=== PATIENT | male | born 1960 | race American Indian/Alaskan Native ===

== ENCOUNTER 2017-08-25 09:29 | Emergency (ER) | payer MEDICAID ==
--- NOTE | 2017-08-25 10:58 | Cat Scan Report ---
CT scan of head without IV contrast: History: NEURODEFICIT Findings: Ventricles are midline in location. Ill-defined area of low attenuation left basal ganglia with dilatation of the adjacent lateral ventricle suggestive of chronic ischemia. Multiple focal areas of low attenuation right basal ganglia suggestive with chronic lacunar infarct. No evidence of acute ischemia or hemorrhage. No extra-axial fluid collection. Normal brainstem and cerebellum. Normal sinuses and mastoid air cells. Impression: Chronic ischemic changes as detailed above. No definite evidence of acute ischemia.
[2017-08-25 11:30] LABS: Basophils % (Auto) 1.1 % (0.0-1.8); Eosinophils % (Auto) 2.3 % (0.0-4.3); Hematocrit 41.6 % (35.5-45.6); Mean Corpuscular HGB Conc 34 % (32-34); Mean Corpuscular Hemoglobin 27 pg (28-32); Mean Corpuscular Volume 81 fl (84-94); Platelet Count 214 K/mm3 (140-440); Red Blood Count 5.13 M/mm3 (3.65-5.03); Red Cell Distribution Width 15.8 % (13.2-15.2); White Blood Count 8.8 K/mm3 (4.5-11.0)
[2017-08-25] MEDS ORDERED: NACL 0.9% 1000 ML 1,000 ML IV ONE (11:47)
--- NOTE | 2017-08-25 12:07 | Emergency Department Report ---
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 Patient states the right side of his face feels tight. He denies involuntary twitching/ spasms. He denies any new neurologic deficits. He denies any symptoms to his right upper or lower extremity. No pain reported. Patient also complaint of felt lightheaded while ambulating today. Patient ambulates with a walker at baseline. No complaints of fever, dysuria, melena, hematochezia, nausea, vomiting, or diarrhea. By mouth intake reported. - Related Data Allergies/Adverse Reactions: Allergies Allergy/AdvReac Type Severity Reaction Status Date / Time No Known Allergies Allergy Unverified 08/25/17 10:15 ED Review of Systems ROS: Stated complaint: STROKE LIKE SYMPTOMS Other details as noted in HPI Comment: All other systems reviewed and negative Other: Constitutional: No fevers chills Eyes: No eye pain visual changes ENT: No ear pain or throat pain Neck: Denies pain Respiratory: Denies cough wheezing shortness of breath Cardiovascular: Denies chest pain, palpitations, syncope GI: Denies abdominal pain, nausea, vomiting, diarrhea : Denies dysuria Musculoskeletal: Denies back pain, joint swelling Skin: Denies rash, lesions, erythema Neurologic: Denies headache, numbness, weakness Psychiatric: Denies suicidal ideation, hallucinations ED Past Medical Hx - Past Medical History Hx Hypertension: Yes Hx CVA: Yes Hx Diabetes: Yes - Surgical History Past Surgical History?: No - Social History Smoking Status: Former Smoker Substance Use Type: None ED Neuro Physical Exam - General Limitations: Physical Limitation Suspected Stroke: No - NIHSS Assessment Interval: Baseline 1a. Level of Consciousness: alert 1b. LOC Questions: answers correctly 1c. LOC Commands: performs tasks correctly 2. Best Gaze: normal 3. Visual: no visual loss 4. Facial Palsy: partial paralysis 5b. Motor Arm Right: no movement 5a. Motor Arm Left: no drift 6a. Motor Leg Left: no gravity effort 6b. Motor Leg Right: no drift 7. Limb Ataxia: absent 8. Sensory: normal 9. Best Language: no aphasia 10. Dysarthria: mild/moderate dysarthria 11. Extinction/Inattention: no abnormality Total Score: 10 Stroke Severity: Moderate Stroke - Other Other exam information: General: No limitations, patient is alert in no acute distress Head exam: Atraumatic, normocephalic Eyes exam: Normal appearance ENT: Moist mucous membrane, normal oropharynx Neck exam: Normal inspection, full range of motion, no meningismus nontender Respiratory exam: Clear to auscultation bilateral, no wheezes, rales, crackles Cardiovascular: Normal rate and rhythm, normal heart sounds Abdomen: Soft, nondistended, and nontender, with normal bowel sounds, no rebound, or guarding Extremity: Full range of motion normal inspection no deformity Back: Normal Inspection, full range of motion, no tenderness Neurologic: Alert, oriented x3, cranial nerves intact, see NIH stroke scale. Deficits are chronic and unchanged Psychiatric: normal affect, normal mood Skin: Warm, dry, intact ED Course Vital Signs 08/25/17 08/25/17 08/25/17 10:00 10:06 10:07 Temperature 98.6 F 98.6 F Pulse Rate 62 62 Respiratory 20 20 20 Rate Blood Pressure 137/71 Blood Pressure 137/71 [Left] O2 Sat by Pulse 97 97 97 Oximetry - Reevaluation(s) Reevaluation #1: 08/25/17 12:07 Patient has orthostatic vital signs with increase in heart rate with standing. 1 L of normal saline ordered - Lab Data Result diagrams: 08/25/17 11:04 08/25/17 11:42 Lab Results 08/25/17 08/25/17 08/25/17 Range/Units 11:04 11:42 11:42 WBC 8.8 (4.5-11.0) K/mm3 RBC 5.13 H (3.65-5.03) M/mm3 Hgb 14.0 (11.8-15.2) gm/dl Hct 41.6 (35.5-45.6) % MCV 81 L (84-94) fl MCH 27 L (28-32) pg MCHC 34 (32-34) % RDW 15.8 H (13.2-15.2) % Plt Count 214 (140-440) K/mm3 Lymph % (Auto) 46.9 H (13.4-35.0) % Davidson % (Auto) 6.5 (0.0-7.3) % Eos % (Auto) 2.3 (0.0-4.3) % Baso % (Auto) 1.1 (0.0-1.8) % Lymph # 4.1 (1.2-5.4) K/mm3 Davidson # 0.6 (0.0-0.8) K/mm3 Eos # 0.2 (0.0-0.4) K/mm3 Baso # 0.1 (0.0-0.1) K/mm3 Seg Neutrophils % 43.2 (40.0-70.0) % Seg Neutrophils # 3.8 (1.8-7.7) K/mm3 PT 13.4 (12.2-14.9) Sec. INR 0.97 (0.87-1.13) APTT 28.4 (24.2-36.6) Sec. Thrombin Time (15.1-19.6) Sec. Sodium 141 (137-145) mmol/L Potassium 4.8 (3.6-5.0) mmol/L Chloride 99.4 (98-107) mmol/L Carbon Dioxide 28 (22-30) mmol/L Anion Gap 18 mmol/L BUN 7 L (9-20) mg/dL Creatinine 0.8 (0.8-1.5) mg/dL Estimated GFR > 60 ml/min BUN/Creatinine Ratio 9 % Glucose 157 H (75-100) mg/dL Calcium 9.6 (8.4-10.2) mg/dL Troponin T < 0.010 (0.00-0.029) ng/mL Urine Color (Yellow) Urine Turbidity (Clear) Urine pH (5.0-7.0) Ur Specific Ulm (1.003-1.030) Urine Protein (Negative) mg/dL Urine Glucose (UA) (Negative) mg/dL Urine Ketones (Negative) mg/dL Urine Blood (Negative) Urine Nitrite (Negative) Urine Bilirubin (Negative) Urine Urobilinogen (<2.0) mg/dL Ur Leukocyte Esterase (Negative) Urine WBC (Auto) (0.0-6.0) /HPF Urine RBC (Auto) (0.0-6.0) /HPF U Epithel Cells (Auto) (0-13.0) /HPF Urine Bacteria (Auto) (Negative) /HPF Urine Mucus /HPF Urine Sperm (HEALTH PLAN ADVISOR) /HPF 08/25/17 08/25/17 Range/Units 11:42 Unknown WBC (4.5-11.0) K/mm3 RBC (3.65-5.03) M/mm3 Hgb (11.8-15.2) gm/dl Hct (35.5-45.6) % MCV (84-94) fl MCH (28-32) pg MCHC (32-34) % RDW (13.2-15.2) % Plt Count (140-440) K/mm3 Lymph % (Auto) (13.4-35.0) % Davidson % (Auto) (0.0-7.3) % Eos % (Auto) (0.0-4.3) % Baso % (Auto) (0.0-1.8) % Lymph # (1.2-5.4) K/mm3 Davidson # (0.0-0.8) K/mm3 Eos # (0.0-0.4) K/mm3 Baso # (0.0-0.1) K/mm3 Seg Neutrophils % (40.0-70.0) % Seg Neutrophils # (1.8-7.7) K/mm3 PT (12.2-14.9) Sec. INR (0.87-1.13) APTT (24.2-36.6) Sec. Thrombin Time 16.7 (15.1-19.6) Sec. Sodium (137-145) mmol/L Potassium (3.6-5.0) mmol/L Chloride (98-107) mmol/L Carbon Dioxide (22-30) mmol/L Anion Gap mmol/L BUN (9-20) mg/dL Creatinine (0.8-1.5) mg/dL Estimated GFR ml/min BUN/Creatinine Ratio % Glucose (75-100) mg/dL Calcium (8.4-10.2) mg/dL Troponin T (0.00-0.029) ng/mL Urine Color Yellow (Yellow) Urine Turbidity Clear (Clear) Urine pH 6.0 (5.0-7.0) Ur Specific Ulm 1.004 (1.003-1.030) Urine Protein <15 mg/dl (Negative) mg/dL Urine Glucose (UA) Neg (Negative) mg/dL Urine Ketones Neg (Negative) mg/dL Urine Blood Neg (Negative) Urine Nitrite Neg (Negative) Urine Bilirubin Neg (Negative) Urine Urobilinogen < 2.0 (<2.0) mg/dL Ur Leukocyte Esterase Neg (Negative) Urine WBC (Auto) < 1.0 (0.0-6.0) /HPF Urine RBC (Auto) 2.0 (0.0-6.0) /HPF U Epithel Cells (Auto) < 1.0 (0-13.0) /HPF Urine Bacteria (Auto) 1+ (Negative) /HPF Urine Mucus Few /HPF Urine Sperm Few (HEALTH PLAN ADVISOR) /HPF - EKG Data -: EKG Interpreted by Fl EKG shows normal: sinus rhythm, axis (rs 61), QRS complexes (82), ST-T waves ( no stemi/t inv) Rate: normal (62) - Radiology Data Radiology results: report reviewed CT head: Chronic ischemic changes. No definitive evidence of acute ischemia - Medical Decision Making No new neurologic deficit or involuntary muscle spasms or seizure activity on exam. Patient received 1 L normal saline due to increased heart rate with standing and complained of lightheadedness. Patient is currently asymptomatic and will be discharged home with PMD follow-up - Differential Diagnosis spasms, seizures, dehydration, anemia, CVA Critical Care Time: No Critical care attestation.: If time is entered above; I have spent that time in minutes in the direct care of this critically ill patient, excluding procedure time. ED Disposition Clinical Impression: Light-headed feeling, History of CVA with residual deficit Disposition: DC-01 TO HOME OR SELFCARE Is pt being admited?: No Does the pt Need Aspirin: No Condition: Stable Instructions: Lightheadedness (ED) Additional Instructions: Continue your current medication. Return if symptoms worsen. Continue drinking plenty of fluids throughout the day. Referrals: PRIMARY CARE, [Primary Care Provider] - 3-5 Days Time of Disposition: 13:54
[2017-08-25 12:11] LABS: INR 0.97 (0.87-1.13)
[2017-08-25 12:16] LABS: Partial Thromboplastin Time 28.4 Sec. (24.2-36.6)
[2017-08-25 12:19] LABS: Anion Gap 18 mmol/L; BUN/Creatinine Ratio 9; Blood Urea Nitrogen 7 mg/dL (9-20); Calcium 9.6 mg/dL (8.4-10.2); Carbon Dioxide 28 mmol/L (22-30); Chloride 99.4 mmol/L (98-107); Glucose 157 mg/dL (75-100); Potassium 4.8 mmol/L (3.6-5.0); Sodium 141 mmol/L (137-145)
[2017-08-25 12:46] LABS: Bacteria,Urine 1+ /HPF (Negative); Bilirubin,Urine NEG (Negative); Blood,Urine NEG (Negative); Ketones,Urine NEG (Negative); Leukocyte Esterase,Urine NEG (Negative); Mucus,Urine FEW /HPF; Nitrite,Urine NEG (Negative); Protein,Urine <15 mg/dL mg/dL (Negative); Sperm,Urine FEW /HPF (NP); Urobilinogen,Urine < 2.0 mg/dL (<2.0); WBC,Urine < 1.0 /HPF (0.0-6.0)
[2017-08-25 14:08] VITALS: BP 143/80
== END 2017-08-25 14:08 | disposition home or self-care (01) ==
LOC: ED 09:29
DX: R42 Dizziness and giddiness (principal); Z86.73 Personal history of transient ischemic attack (TIA), and cerebral infarction without residual deficits; I10 Essential (primary) hypertension; E11.9 Type 2 diabetes mellitus without complications; Z87.891 Personal history of nicotine dependence
CPT/HCPCS: 36415; 70450; 80048; 81001; 82962; 84484; 85025; 85610; 85670; 85730; 93005; 93010; 96360; 99285; J7030

== ENCOUNTER 2018-01-28 03:22 | Emergency (ER) | payer MEDICAID ==
--- NOTE | 2018-01-28 05:55 | Ultrasound Report ---
FINAL REPORT EXAM: US TESTICULAR DOPPLER COMP HISTORY: Scrotum swollen COMPARISONS: None FINDINGS: Grayscale, color and spectral Doppler ultrasound evaluation of the testicles The right testicle measures 5.2 x 2.1 x 2.9 cm and demonstrates normal echotexture and color and spectral Doppler evaluation. The epididymis is within normal limits. No intra or extratesticular mass. There is a large right-sided hydrocele versus spermatocele measuring up to 7 cm. The left testicle measures 4.9 x 2.5 x 2.8 cm cm and contains 2 adjacent heterogeneously hypoechoic eccentrically located lesions measuring 6 x 5 x 4 millimeters and 2 x 2 x 2 millimeters. Normal spectral Doppler waveforms. The left epididymis is slightly heterogeneous and within normal limits for size. No varicocele. IMPRESSION: There are 2 adjacent indeterminate left-sided intra testicular lesions measuring up to 6 millimeters. Differential diagnosis includes intra testicular adrenal rests, tubular ectasia, and testicular epidermoid. Malignant neoplasms are also possible but are thought less likely. Urology follow-up is suggested. Large right-sided hydrocele versus spermatocele measuring up to 7 cm is the likely cause of patient's swelling. Dr. Anderson discussed findings with Dr. Lomeli At 0442 central Time on 01/28/2018 immediately following the examination.
--- NOTE | 2018-01-28 06:59 | Emergency Department Report ---
ED Male HPI - General Chief complaint: Urogenital-Male Stated complaint: SWOLLEN TESTICLES Time Seen by Provider: 01/28/18 06:48 Source: patient Mode of arrival: Stretcher Limitations: No Limitations - History of Present Illness Initial comments: Swelling, right testicle with epididymal pain for 2 days no penile discharge no nausea or vomiting or diarrhea. No fever here for evaluation of right sided testicle pain with small amount of swelling denies sudden onset laying in the bed comfortably without evidence of acute scrotum at this time MD Complaint: testicle pain, testicle swelling -: Gradual Location: right testicle Radiation: none Severity: mild Consistency: intermittent Worsens with: none denies other symptoms - Related Data Previous Rx's Medication Instructions Recorded Last Taken Type Ciprofloxacin HCl [Cipro] 500 mg PO BID #28 tablet 01/28/18 Unknown Rx Ibuprofen [Motrin] 600 mg PO Q8H PRN #30 tablet 01/28/18 Unknown Rx Allergies Allergy/AdvReac Type Severity Reaction Status Date / Time No Known Allergies Allergy Unverified 08/25/17 10:15 ED Review of Systems ROS: Stated complaint: SWOLLEN TESTICLES Other details as noted in HPI Comment: All other systems reviewed and negative Constitutional: denies: diaphoresis, fever, malaise Eyes: denies: eye discharge, vision change ENT: denies: dental pain, hearing loss, epistaxis Respiratory: denies: shortness of breath, SOB with exertion, SOB at rest, stridor Cardiovascular: denies: chest pain, palpitations, dyspnea on exertion, orthopnea , edema, syncope, paroxysmal nocturnal dyspnea Gastrointestinal: denies: abdominal pain, nausea, vomiting Genitourinary: testicular pain, testicular mass. denies: urgency, dysuria, frequency, hematuria, discharge Neurological: denies: numbness, paresthesias, confusion Hematological/Lymphatic: denies: easy bruising, swollen glands ED Past Medical Hx - Past Medical History Previous Medical History?: Yes Hx Hypertension: Yes Hx CVA: Yes (right site weakness) Hx Diabetes: Yes - Surgical History Past Surgical History?: No - Social History Smoking Status: Former Smoker Substance Use Type: None - Medications Home Medications: Home Medications Medication Instructions Recorded Confirmed Last Taken Type Ciprofloxacin HCl [Cipro] 500 mg PO BID #28 tablet 01/28/18 Unknown Rx Ibuprofen [Motrin] 600 mg PO Q8H PRN #30 tablet 01/28/18 Unknown Rx ED Physical Exam - General Limitations: No Limitations General appearance: alert, in no apparent distress - Head Head exam: Present: atraumatic, normocephalic - Eye Eye exam: Present: PERRL, EOMI - ENT ENT exam: Present: normal exam, normal orophraynx - Neck Neck exam: Present: normal inspection. Absent: tenderness, meningismus - Respiratory Respiratory exam: Present: normal lung sounds bilaterally. Absent: respiratory distress, wheezes, rhonchi, stridor, accessory muscle use, prolonged expiratory - Cardiovascular Cardiovascular Exam: Present: regular rate, normal rhythm, normal heart sounds - GI/Abdominal GI/Abdominal exam: Present: soft. Absent: distended, tenderness, guarding, rebound, rigid, pulsatile mass - exam: Present: normal inspection, scrotal swelling, other (normal tenderness with swelling to the right side testicle with normal lie no discharge no acute scrotum appreciated) - Back Exam Back exam: Present: normal inspection. Absent: CVA tenderness (L), muscle spasm , paraspinal tenderness, vertebral tenderness - Neurological Exam Neurological exam: Present: alert, oriented X3, CN II-XII intact. Absent: motor sensory deficit ED Course Vital Signs 01/28/18 01/28/18 03:39 03:47 Temperature 98.8 F Pulse Rate 74 Respiratory 16 16 Rate Blood Pressure 137/75 Blood Pressure 137/75 [Left] O2 Sat by Pulse 99 99 Oximetry ED Medical Decision Making - Radiology Data Radiology results: report reviewed - Medical Decision Making Urine culture is pending. Patient will be started on antibiotics. He does have a right-sided hydrocele on ultrasound with good flow and no evidence of torsion. He also has left-sided testicular mass according to the radiologist 6 mm testicular epidermoid versus CVA patient was informed of need for follow-up with he is still for outpatient follow-up without evidence of infection scrotal no evidence of torsion at this time he started SOLEDAD stable vitals Critical care attestation.: If time is entered above; I have spent that time in minutes in the direct care of this critically ill patient, excluding procedure time. ED Disposition Clinical Impression: Hydrocele in adult, Scrotal disorder Disposition: TO HOME OR SELFCARE Is pt being admited?: No Condition: Stable Instructions: Hydrocele (ED), Testicle Pain (ED) Additional Instructions: you have a scrotal mass that needs to be further evalulated make an appt w/ a urologist and see the doctor listed, return if worse Prescriptions: Ciprofloxacin HCl [Cipro] 500 mg PO BID #28 tablet Ibuprofen [Motrin] 600 mg PO Q8H PRN #30 tablet PRN Reason: Pain Referrals: HUGO WYNNE MD [Primary Care Provider] - 3-5 Days Time of Disposition: 08:04
[2018-01-28 08:04] LABS: RBC,Urine < 1.0 /HPF (0.0-6.0)
[2018-01-28 08:12] LABS: Bilirubin,Urine NEG (Negative); Blood,Urine NEG (Negative); Color,Urine Yellow (Yellow); Protein,Urine <15 mg/dL mg/dL (Negative); Urobilinogen,Urine < 2.0 mg/dL (<2.0); WBC,Urine < 1.0 /HPF (0.0-6.0)
[2018-01-28 09:52] VITALS: BP 129/89
== END 2018-01-28 09:40 | disposition home or self-care (01) ==
LOC: ED 03:22
DX: N43.3 Hydrocele, unspecified (principal); N50.9 Disorder of male genital organs, unspecified; I10 Essential (primary) hypertension; E11.9 Type 2 diabetes mellitus without complications
CPT/HCPCS: 81001; 87086; 93975

== ENCOUNTER 2018-03-10 10:08 | Day surgery (SDC) | payer MEDICAID ==
[2018-03-10] MEDS ORDERED: MARCAINE 0.25% INFILTRATI ONE (10:59)
[2018-03-10] MEDS ORDERED: XYLOCAINE 1% 20 mL ONE (10:59)
--- NOTE | 2018-03-10 11:50 | Anesthesia Consultation ---
Anesthesia Consult and Med Hx Date of service: 03/10/18 - Airway Anesthetic Teeth Evaluation: Poor (several missing teeth) ROM Head & Neck: Adequate Mental/Hyoid Distance: Adequate Mallampati Class: Class II Intubation Access Assessment: Probably Good - Pulmonary Exam CTA: Yes - Cardiac Exam Cardiac Exam: RRR - Pre-Operative Health Status ASA Pre-Surgery Classification: ASA3 Proposed Anesthetic Plan: General (no contraindication to LMA found) - Pulmonary Hx Smoking: Yes (STOPPED 2013) Hx Sleep Apnea: No (IRWIN PRE SCREEN HIGH RISK) - Cardiovascular System Hx Hypertension: Yes (2013) Hx Peripheral Vascular Disease: Yes (RT LEG filter) - Central Nervous System CVA: Yes (2013- RT SIDED WEAKNESS upper and lower extrimities, NO BLOOD THINNERS ) - Gastrointestinal Hx Gastroesophageal Reflux Disease: No - Other Systems Hx Cancer: No
--- NOTE | 2018-03-10 11:52 | Anesthesia Day of Surgery ---
Anesthesia Day of Surgery - Day of Surgery Patient Examined: Yes Patient H&P Reviewed: Yes Patient is NPO: Yes Beta Blockers: Yes (took lisinopril and metoprolol, held metformin)
[2018-03-10] MEDS ORDERED: ZOFRAN IV PRN (11:53)
[2018-03-10] MEDS ORDERED: DILAUDID IV PRN (11:53)
[2018-03-10] MEDS ORDERED: NACL 0.9% 1000 ML 1,000 ML IV SCH (12:00)
[2018-03-10] MEDS ORDERED: PEPCID PO NR (12:00)
[2018-03-10] MEDS ORDERED: PEPCID ONE (12:00)
[2018-03-10] MEDS ORDERED: SUBLIMAZE ONE (12:17)
[2018-03-10] MEDS ORDERED: DIPRIVAN 10 MG/ML IV ONE (12:17)
[2018-03-10] MEDS ORDERED: XYLOCAINE MPF 2% ONE (12:19)
[2018-03-10] MEDS ORDERED: ANCEF/STERILE WATER 2 GM/20 ML IV NR (12:42)
[2018-03-10] MEDS ORDERED: NACL 0.9% IR ONE (14:00)
[2018-03-10] MEDS ORDERED: ZEMURON IV ONE (14:00)
[2018-03-10] MEDS ORDERED: ZOFRAN ONE (14:07)
--- NOTE | 2018-03-10 16:03 | Post Operative Note ---
Date of procedure: 03/10/18 Pre-op diagnosis: r scrotal mass Findings: tense hydrocele Procedure: r hrdrocelectomy and biopsy Anesthesia: GETA Surgeon: AKBAR CORONEL Estimated blood loss: minimal Pathology: list (sac and testes) Specimen disposition: to lab Condition: stable Disposition: PACU
--- NOTE | 2018-03-10 16:05 | Discharge Summary ---
Short Stay Discharge Plan Activity: other (no straining ) Weight Bearing Status: Full Weight Bearing Diet: low cholesterol, low salt, diabetic Wound: keep clean and dry Special Instructions: other (dressing chenge q day ) Durable Medical Equipment Needed Upon Discharge: other (has penrsoe ) Follow up with: PRIMARY CARE, [Primary Care Provider] - 7 Days AKBAR CORONEL MD [Staff Physician] - 03/12/18
[2018-03-10] MEDS ORDERED: NORMODYNE IV ONE (18:22)
[2018-03-10] MEDS ORDERED: NORMODYNE IV PRN (18:30)
[2018-03-10 19:01] VITALS: BP 177/108
--- NOTE | 2018-03-23 20:36 | Operative Report ---
PREOPERATIVE DIAGNOSES: Large right hydrocele, elevated alpha fetoprotein. POSTOPERATIVE DIAGNOSES: Large right hydrocele, elevated alpha fetoprotein. PROCEDURE: Right hydrocelectomy with biopsy of the superficial tunica of the testis on the right side. SURGEON: Anmol Morgan MD ANESTHESIA: General. FINDINGS: This gentleman with a normal palpable left testis, a very large right hydrocele. He now presents with pain for repair. Ultrasound showed no persistent filling defects except for two 3-6 mm areas in the left side, which looks to be just more cystic. DESCRIPTION OF PROCEDURE: The patient was brought and placed on the operating table. Following induction of anesthesia, placed in the supine position, prepped and draped in the usual sterile fashion. An oblique incision was made over the right hemiscrotum, carried through the skin and superficial fascia and tunica vaginalis was exposed. There were lots of thickened tunica around the fascial layers probably from previous infection. Once this was delivered and the surrounding fascial attachments were released, we opened up the vaginalis, approximately 100 mL of clear yellow fluid was obtained. Extra thickened tunica was excised and oversewn with 3-0 chromic. There was some fibrinous material over the testis, which was biopsied and sent to pathology. We are still awaiting the ____ final pathology is pending. The patient tolerated the procedure well. A Mission was brought through the skin and he was brought to recovery in stable condition. History part was dictated, I do not see it and it may have been under a different medical record number because I think there were 2, but the report was dictated immediately after surgery. JOB# [id number] ADA/SELAM
== END 2018-03-10 10:09 | disposition home or self-care (01) ==
LOC: OR 10:08
PROVIDERS: ATTEND Urology
DX: N43.3 Hydrocele, unspecified (principal); N41.1 Chronic prostatitis; N50.89 Other specified disorders of the male genital organs; I10 Essential (primary) hypertension; I73.9 Peripheral vascular disease, unspecified; I69.951 Hemiplegia and hemiparesis following unspecified cerebrovascular disease affecting right dominant side; Z87.891 Personal history of nicotine dependence
CPT/HCPCS: 54500; 55040; 82962; 88305; 88341; 88342; J0690; J2405; J2704; J3010; J7030; 88302

== ENCOUNTER 2019-04-05 01:53 | Emergency (ER) | payer MEDICAID ==
[2019-04-05] MEDS ORDERED: MORPHINE IV ONE (02:34)
[2019-04-05 03:18] LABS: Basophils # (Auto) 0.1 K/mm3 (0.0-0.1); Basophils % (Auto) 0.6 % (0.0-1.8); Eosinophils # (Auto) 0.2 K/mm3 (0.0-0.4); Eosinophils % (Auto) 1.4 % (0.0-4.3); Hematocrit 43.1 % (35.5-45.6); Hemoglobin 14.5 gm/dl (11.8-15.2); Lymphocytes # (Auto) 3.6 K/mm3 (1.2-5.4); Lymphocytes % (Auto) 23.9 % (13.4-35.0); Mean Corpuscular HGB Conc 34 % (32-34); Mean Corpuscular Volume 81 fl (84-94); Monocytes # (Auto) 1.3 K/mm3 (0.0-0.8); Monocytes % (Auto) 8.6 % (0.0-7.3); Platelet Count 222 K/mm3 (140-440); Red Blood Count 5.29 M/mm3 (3.65-5.03); Red Cell Distribution Width 14.2 % (13.2-15.2)
[2019-04-05 03:36] LABS: Alanine Aminotransferase 31 units/L (7-56); Albumin 4.1 g/dL (3.9-5); BUN/Creatinine Ratio 6; Bilirubin,Direct 0.2 mg/dL (0-0.2); Blood Urea Nitrogen 7 mg/dL (9-20); Calcium 9.4 mg/dL (8.4-10.2); Hemolysis Index 5
--- NOTE | 2019-04-05 03:42 | XRay Report ---
PROCEDURE: XR ABDOMEN 2V TECHNIQUE: 2 views of the abdomen were obtained. HISTORY: Abdominal Pain COMPARISONS: None FINDINGS: The bowel gas pattern is unremarkable. Free air is not seen. There is a filter in expected position i n the IVC with the apex at the L1-2 level. The lung bases are clear. The skeletal structures reveal a rthritic changes in the lumbar spine. IMPRESSION: Nonobstructive bowel gas pattern. No acute process identified.. This document is electronically signed by Steven Spivey MD., April 05 2019 03:40:07 AM ET
--- NOTE | 2019-04-05 03:50 | Emergency Department Report ---
HPI - General Chief Complaint: Abdominal Pain Time Seen by Provider: 04/05/19 02:16 - HPI HPI: 58-year-old -[place] male presents to the emergency department from home with a complaint of a 24-hour history of some generalized abdominal pain. He de nies any nausea, vomiting, diarrhea, dysuria. 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 His primary care physician is Dr. Bustos. He has not taken anything for her symptoms prior to presentation. No recent travel or sick contacts at home. ED Past Medical Hx - Past Medical History Hx Hypertension: Yes Hx CVA: Yes (right site weakness) Hx Diabetes: Yes Hx HIV: No - Social History Smoking Status: Never Smoker Substance Use Type: None - Medications Home Medications: Home Medications Medication Instructions Recorded Confirmed Last Taken Type Aspirin [Lo-Dose Aspirin EC] 81 mg PO DAILY 02/19/18 05/28/18 03/04/18 History Baclofen 20 mg PO TID 02/19/18 05/28/18 05/28/18 History Citalopram [Celexa] 20 mg PO QDAY 02/19/18 05/28/18 05/28/18 History Dantrolene Sodium [Dantrium] 100 mg PO TID 02/19/18 05/28/18 05/28/18 History Gabapentin [Neurontin] 100 mg PO TID 02/19/18 05/28/18 05/28/18 History Lisinopril [Zestril] 40 mg PO DAILY 02/19/18 05/28/18 05/28/18 History Simvastatin [Zocor TAB] 40 mg PO QHS 02/19/18 05/28/18 05/27/18 History Terazosin HCl 1 mg PO DAILY 02/19/18 05/28/18 05/27/18 History metFORMIN [Glucophage] 500 mg PO BID 02/19/18 05/28/18 05/27/18 History Metoprolol [Lopressor TAB] 50 mg PO QDAY 03/10/18 05/28/18 05/28/18 History Ciprofloxacin HCl [Ciprofloxacin 500 mg PO Q12HR #14 tab 04/05/19 Unknown Rx TAB] ED Review of Systems ROS: Stated complaint: ABDOMINAL PAIN Other details as noted in HPI Comment: All other systems reviewed and negative Constitutional: denies: chills, fever Eyes: denies: eye pain, vision change ENT: denies: ear pain, throat pain Respiratory: denies: cough, shortness of breath Cardiovascular: denies: chest pain, palpitations Gastrointestinal: abdominal pain. denies: nausea, vomiting Genitourinary: denies: dysuria, frequency Musculoskeletal: denies: back pain, arthralgia Skin: denies: rash, lesions Neurological: denies: headache, weakness Physical Exam - Physical Exam Vital Signs: Vital Signs 04/05/19 02:11 Temperature 98.1 F Pulse Rate 89 Respiratory 16 Rate Blood Pressure 128/75 O2 Sat by Pulse 99 Oximetry Physical Exam: GENERAL: The patient is well-developed well-nourished. HENT: Normocephalic. Atraumatic. Patient has moist mucous membranes. EYES: Extraocular motions are intact. Pupils equal reactive to light bilaterally. NECK: Supple. Trachea is midline. CHEST/LUNGS: Clear to auscultation. There is no respiratory distress noted. HEART/CARDIOVASCULAR: Regular. There is no tachycardia. There is no murmur. ABDOMEN: Abdomen is soft. Generalized tenderness to palpation of the abdomen. No guarding. Patient has normal bowel sounds. There is no abdominal distention. SKIN: Skin is warm and dry. NEURO: The patient is awake, alert, and cooperative. The patient has no focal neurologic deficits. The patient has normal speech. MUSCULOSKELETAL: There is no tenderness or deformity. There is no evidence of acute injury. ED Course Vital Signs 04/05/19 02:11 Temperature 98.1 F Pulse Rate 89 Respiratory 16 Rate Blood Pressure 128/75 O2 Sat by Pulse 99 Oximetry ED Medical Decision Making - Lab Data Result diagrams: 04/05/19 03:03 04/05/19 03:03 - Radiology Data Radiology results: report reviewed, image reviewed interpreted by me: Abdominal x-ray shows nonspecific nonobstructive bowel gas PROCEDURE: CT ABDOMEN PELVIS W CON TECHNIQUE: Computerized axial tomography of the abdomen and pelvis was performed after the administration of IV iodinated nonionic contrast. CT DOSE LENGTH PRODUCT: 3078.2 mGycm HISTORY: abd pain COMPARISONS: None . FINDINGS: Visualized lower thorax: The lung bases reveal interstitial changes which appear to be a chronic basis. There are no infiltrates or effusions.. Liver: Normal size and attenuation. Spleen: Normal size and attenuation. Gallbladder and biliary system: Normal. Pancreas: Normal. Adrenals: Normal. Kidneys: The kidneys enhance normally. There is no evidence of stones or hydronephrosis.. GI tract: The bowel loops are normal in caliber and course. There are numerous uncomplicated diverticula throughout the colon. The appendix appears normal.. Lymph nodes and mesentery: There is localized reticulation of the mesentery in the left lower quadrant adjacent to the distal left ureter. Mild mesenteric panniculitis cannot be excluded.. Vasculature: There is a filter deployed in the IVC. There is calcification of the abdominal aorta which otherwise is normal in caliber. The portal vein is widely patent.. Bladder: There is generalized mild thickening of the bladder. Whether this related to cystitis or hypertrophy is uncertain.. Reproductive organs: Normal. Peritoneum: No free fluid. 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 Other: None. IMPRESSION: Uncomplicated colonic diverticulosis. No evidence of appendicitis. Localized reticulation of the mesentery in the left lower quadrant adjacent to the distal left ureter.. Mild mesenteric panniculitis cannot be excluded. Mild generalized thickening of the bladder wall secondary to bladder wall hypertrophy or cystitis. 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 No evidence of renal stones or hydronephrosis. This document is electronically signed by Steven Spviey MD., April 05 2019 06:33:26 AM ET Transcribed By: KANDACE Dictated By: STEVEN SPIVEY MD Electronically Authenticated By: STEVEN SPIVEY MD Signed Date/Time: 04/05/19 0635 - Medical Decision Making Patient presents with 2 days of generalized abdominal pain. Abdomen is soft, nontoxic in appearance. Labs are mostly unremarkable except for a significant urinary tract infection on urinalysis. CT scan shows some uncomplicated diverticulosis and bladder wall thickening. Patient was given a dose of IV antibiotics here and something for pain will be sent home with antibiotics. Instructed to follow up with primary care and return to the ER if any worsening of his symptoms or any acute distress. - Differential Diagnosis UTI, colitis, diverticulitis, bowel obstruction Critical Care Time: No Critical care attestation.: If time is entered above; I have spent that time in minutes in the direct care of this critically ill patient, excluding procedure time. ED Disposition Clinical Impression: Diverticulosis Abdominal pain Qualifiers: Abdominal location: generalized Qualified Code(s): R10.84 - Generalized abdominal pain UTI (urinary tract infection) Qualifiers: Urinary tract infection type: acute cystitis Hematuria presence: without hematuria Qualified Code(s): N30.00 - Acute cystitis without hematuria Disposition: TO HOME OR SELFCARE Is pt being admited?: No Condition: Stable Instructions: Diverticulosis (ED), Urinary Tract Infection in Men (ED), Diverticulosis Diet (ED), Abdominal Pain (ED) Additional Instructions: Please follow-up with your primary care physician in the next few days. I am giving him a referral for a local urologist, Dr. Diaz, to follow up regarding your urinary tract infection/bladder infection. Take the antibiotics as prescribed. Return to the emergency Department with any worsening of your symptoms or any acute distress. Prescriptions: Ciprofloxacin HCl [Ciprofloxacin TAB] 500 mg PO Q12HR #14 tab Referrals: QIAN DIAZ MD [Staff Physician] - 3-5 Days Primary Care Provider, Your [Other] - 3-5 Days Time of Disposition: 06:45
[2019-04-05 04:50] LABS: Bacteria,Urine 1+ /HPF (Negative); Bilirubin,Urine NEG (Negative); Blood,Urine LG (Negative); Mucus,Urine FEW /HPF; Urobilinogen,Urine < 2.0 mg/dL (<2.0)
[2019-04-05 04:53] LABS: Color,Urine Yellow (Yellow); WBC,Urine > 182.0 /HPF (0.0-6.0)
[2019-04-05] MEDS ORDERED: ROCEPHIN/NS 1 GM/50 ML 1 GM/50 ML BAG IV ONE (05:54)
[2019-04-05 06:29] VITALS: BP 124/73
--- NOTE | 2019-04-05 06:35 | Cat Scan Report ---
PROCEDURE: CT ABDOMEN PELVIS W CON TECHNIQUE: Computerized axial tomography of the abdomen and pelvis was performed after the administr ation of IV iodinated nonionic contrast. CT DOSE LENGTH PRODUCT: 3078.2 mGycm HISTORY: abd pain COMPARISONS: None . FINDINGS: Visualized lower thorax: The lung bases reveal interstitial changes which appear to be a chronic basi s. There are no infiltrates or effusions.. Liver: Normal size and attenuation. Spleen: Normal size and attenuation. Gallbladder and biliary system: Normal. Pancreas: Normal. Adrenals: Normal. Kidneys: The kidneys enhance normally. There is no evidence of stones or hydronephrosis.. GI tract: The bowel loops are normal in caliber and course. There are numerous uncomplicated diverti cula throughout the colon. The appendix appears normal.. Lymph nodes and mesentery: There is localized reticulation of the mesentery in the left lower quadran t adjacent to the distal left ureter. Mild mesenteric panniculitis cannot be excluded.. Vasculature: There is a filter deployed in the IVC. There is calcification of the abdominal aorta whi ch otherwise is normal in caliber. The portal vein is widely patent.. Bladder: There is generalized mild thickening of the bladder. Whether this related to cystitis or hyp ertrophy is uncertain.. Reproductive organs: Normal. Peritoneum: No free fluid. 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 Other: None. IMPRESSION: Uncomplicated colonic diverticulosis. No evidence of appendicitis. Localized reticulation of the mesentery in the left lower quadrant adjacent to the distal left ureter .. Mild mesenteric panniculitis cannot be excluded. Mild generalized thickening of the bladder wall secondary to bladder wall hypertrophy or cystitis. 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 No evidence of renal stones or hydronephrosis. This document is electronically signed by Steven Spivey MD., April 05 2019 06:33:26 AM ET
== END 2019-04-05 08:18 | disposition home or self-care (01) ==
LOC: ED 01:53
DX: K57.90 Diverticulosis of intestine, part unspecified, without perforation or abscess without bleeding (principal); N39.0 Urinary tract infection, site not specified; I10 Essential (primary) hypertension; E11.9 Type 2 diabetes mellitus without complications; Z79.82 Long term (current) use of aspirin; Z79.899 Other long term (current) drug therapy; Z86.73 Personal history of transient ischemic attack (TIA), and cerebral infarction without residual deficits
CPT/HCPCS: 36415; 74019; 74177; 80048; 80076; 81001; 83690; 85025; 96365; 96375; 99285; J0696; J2270; Q9967